=== PATIENT | male | born 1945 | race Caucasian/White ===

== ENCOUNTER 2021-12-22 12:50 | Observation (INO) ==
[2021-12-22] MEDS ORDERED: ONDANSETRON 4 MG/2 ML VIAL IV PRN (14:07)
[2021-12-22] MEDS ORDERED: DOCUSATE SODIUM 100 MG CAPSULE PO PRN (14:07)
[2021-12-22] MEDS ORDERED: ACETAMINOPHEN 325 MG TABLET PO PRN (14:07)
[2021-12-22] MEDS ORDERED: POTASSIUM CHLORIDE RIDER 10 MEQ/100 ML PREMIX IV ONE (14:12)
[2021-12-22] MEDS ORDERED: POTASSIUM CHLORIDE 20 MEQ TABLET PO ONE (14:13)
[2021-12-22] MEDS: SODIUM CHLORIDE 0.9% 1,000 ML IV SCH (14:15)
[2021-12-22] MEDS: cefTRIAXone 2,000 MG in SODIUM CHLORIDE 0.9% 100 ML IV SCH (16:16)
[2021-12-22] MEDS ORDERED: DOXYCYCLINE HYCLATE 100 MG CAPSULE PO SCH ×2 (18:00→19:00)
[2021-12-22] MEDS: DOXYCYCLINE HYCLATE 100 MG CAPSULE PO SCH (20:45)
[2021-12-23] MEDS: SODIUM CHLORIDE 0.9% 1,000 ML IV SCH ×5 (00:03→23:41)
[2021-12-23 05:07] LABS: Basophils # 0.1 10*3/uL (0.0-0.2); Basophils % 1.4 % (0.0-0.8); Eosinophils % 0.2 % (0.00-10.9); Hematocrit 38.4 VOL% (42.0-52.0); Immature Granulocytes % 0.5 %; Immature Granulocytes Absolute 0.02 #; Lymphocytes % 47.8 % (21.2-54.2); Mean Corpuscular HGB Conc 36.5 GM/DL (32-36); Mean Corpuscular Volume 87.7 FL (87-102); Mean Platelet Volume 11.4 FL (9.6-12.0); Monocytes # 0.3 10*3/uL (0.11-0.8); Monocytes % 7.8 % (1.7-12.7); Neutrophils % 42.3 % (38.7-73.9); Platelet Count 85 T/CUMM (130-400); Red Blood Count 4.38 MC/CUMM (3.8-5.5); White Blood Count 4.3 T/CUMM (4-12)
[2021-12-23 05:20] LABS: Calcium 7.9 MG/DL (8.5-10.1); Osmolality,Calculated 262.7 MOS/KG (273-304); Potassium 3.4 MMOL/L (3.5-5.1)
[2021-12-23 05:36] LABS: Band Neutrophils 1 % (0-10); Lymphocytes 32 % (20-55); Platelet Estimate Decreased; Total Cells Counted 100
[2021-12-23 05:37] LABS: Atypical Lymphocytes Few
[2021-12-23] MEDS: PANTOPRAZOLE 40 MG TABLET PO SCH (10:40)
[2021-12-23] MEDS: DOXYCYCLINE HYCLATE 100 MG CAPSULE PO SCH ×2 (10:40→20:51)
[2021-12-23] MEDS: POTASSIUM CHLORIDE 20 MEQ TABLET PO SCH (10:40)
[2021-12-23] MEDS: cefTRIAXone 2,000 MG in SODIUM CHLORIDE 0.9% 100 ML IV SCH (15:13)
[2021-12-24 05:04] LABS: Basophils % 0.5 % (0.0-0.8); Eosinophils # 0.1 10*3/uL (0.0-0.87); Hematocrit 36.2 VOL% (42.0-52.0); Hemoglobin 12.8 GM/DL (14.0-18.0); Immature Granulocytes % 0.3 %; Immature Granulocytes Absolute 0.02 #; Lymphocytes # 3.9 10*3/uL (1.4-4.0); Lymphocytes % 67.5 % (21.2-54.2); Mean Corpuscular HGB Conc 35.4 GM/DL (32-36); Mean Corpuscular Volume 88.5 FL (87-102); Mean Platelet Volume 11.6 FL (9.6-12.0); Monocytes # 0.3 10*3/uL (0.11-0.8); Monocytes % 5.9 % (1.7-12.7); Neutrophils % 24.8 % (38.7-73.9); Platelet Count 116 T/CUMM (130-400); Red Blood Count 4.09 MC/CUMM (3.8-5.5); Red Cell Distribution Width 13.1 % (9.3-17.3); White Blood Count 5.7 T/CUMM (4-12)
[2021-12-24 05:30] LABS: Lymphocytes 57 % (20-55); Total Cells Counted 100
[2021-12-24 05:31] LABS: Atypical Lymphocytes Few
[2021-12-24 07:18] VITALS: BP 120/69
[2021-12-24 08:38] LABS: Calcium 7.8 MG/DL (8.5-10.1); Potassium 3.5 MMOL/L (3.5-5.1)
[2021-12-24] MEDS ORDERED: MAGNESIUM CHLORIDE 64 MG TABLET PO SCH ×2 (09:00)
[2021-12-24] MEDS ORDERED: MAGNESIUM CHLORIDE 64 MG TABLET PO ONE (10:40)
[2021-12-24] MEDS: SODIUM CHLORIDE 0.9% 1,000 ML IV SCH (10:43)
[2021-12-24] MEDS: POTASSIUM CHLORIDE 20 MEQ TABLET PO SCH (10:46)
[2021-12-24] MEDS: PANTOPRAZOLE 40 MG TABLET PO SCH (10:46)
[2021-12-24] MEDS: DOXYCYCLINE HYCLATE 100 MG CAPSULE PO SCH (10:46)
[2021-12-30 08:59] LABS: IgG Detected Against p41 kDa (No Bands); IgG Immunoblot Negative (Negative); IgM Detected Against p41 kDa (No Bands); IgM Immunoblot Negative (Negative)
== END 2021-12-24 10:55 | disposition home or self-care (01) ==
LOC: INTOOBSV 13:47 → N.5E 13:47
PROVIDERS: ADMIT Family Medicine; ATTEND Family Medicine